=== PATIENT | female | born 2000 | race Hispanic/Latino ===

== ENCOUNTER 2024-06-25 10:34 | Outpatient (CLI) | payer BC, MEDICAID | END 2024-06-25 10:35 | disposition home or self-care (01) | LOC: CSHULT 10:34 | PROVIDERS: ATTEND Student in an Organized Health Care Education/Training Program | DX: R10.11 Right upper quadrant pain (principal); K80.20 Calculus of gallbladder without cholecystitis without obstruction | CPT/HCPCS: 76705 ==